=== PATIENT | male | born 1975 | race Two or more races ===

== ENCOUNTER 2017-03-14 11:53 | Emergency (ER) | payer MEDICAID ==
[2017-03-14] MEDS ORDERED: BLOOD PRESSURE MED PO (12:43)
== END 2017-03-14 13:05 ==
LOC: EDMED 11:53
PROC: 3E023BZ Introduction of Anesthetic Agent into Muscle, Percutaneous Approach (ICD-10-PCS; principal; 2017-03-14)
PROC: 0HCFXZZ Extirpation of Matter from Right Hand Skin, External Approach (ICD-10-PCS; 2017-03-14)
DX: S60.450A Superficial foreign body of right index finger, initial encounter (principal); Z23 Encounter for immunization; F17.210 Nicotine dependence, cigarettes, uncomplicated; W45.8XXA Other foreign body or object entering through skin, initial encounter; W22.8XXA Striking against or struck by other objects, initial encounter; Y92.828 Other wilderness area as the place of occurrence of the external cause